=== PATIENT | male | born 2000 | race Caucasian/White ===

== ENCOUNTER 2023-02-02 12:57 | Emergency (ER) | payer MEDICAID ==
[~2023-02-02] VITALS: Ht 182.9 cm; Wt 55.4 kg
[2023-02-02 13:01] VITALS: BP 117/51; PULSE 79; TEMP 98.1; O2SAT 99
[2023-02-02] MEDS ORDERED: ondansetron 4mg rapidly disintigrating tab PO ONE (16:35)
[2023-02-02] MEDS ORDERED: ketorolac tromethamine 15mg/ml inj. IM ONE (16:35)
[2023-02-02 17:05] VITALS: RESP 14
[2023-02-02] MEDS ORDERED: ibuprofen tablet 400 MG TABLET PO ONE (17:05)
== END 2023-02-02 17:20 | disposition home or self-care (01) ==
LOC: ER 12:58
DX: S09.90XA Unspecified injury of head, initial encounter (principal); X58.XXXA Exposure to other specified factors, initial encounter; Y93.89 Activity, other specified; Y92.89 Other specified places as the place of occurrence of the external cause; Y99.8 Other external cause status
CPT/HCPCS: 99283

== ENCOUNTER 2024-09-17 14:53 | Emergency (ER) | payer MEDICAID ==
[~2024-09-17] VITALS: Ht 175.3 cm; Wt 61.0 kg
[2024-09-17 15:12] VITALS: BP 132/84; PULSE 65; TEMP 97.8; O2SAT 100
[2024-09-17 17:16] VITALS: RESP 16
[2024-09-17] MEDS ORDERED: PROM118S5 PO (17:23)
[2024-09-20 05:14] LABS: CHLAMYDIA TRACHOMATIS, NAA Negative (Negative)
== END 2024-09-17 18:50 | disposition home or self-care (01) ==
LOC: ER 14:54
DX: I86.1 Scrotal varices (principal)
CPT/HCPCS: 36415; 76870; 87491; 93976; 99284